=== PATIENT | female | born 1940 | race Caucasian/White ===

== ENCOUNTER 2016-08-13 07:52 | Day surgery (SDC) | payer MEDICARE ==
--- NOTE | 2016-07-29 13:32 | HP ---
Chief Complaint - Chief Complaint Date of Service: 07/29/16 Chief Complaint: need a colonoscopy History of Present Illness: 75 yo female who needs a colonoscopy. Last one was 10 years ago. She believes she had polyps removed. Does not know how many, where located or which type. No blood in stools. No changes in bowels. No abdominal pain and no weight loss. No family history of colon cancers. Also wants me to look at the gallbladder scar and incision. Mild soreness after illness with coughing and sneezing. - Patient's Past Medical History Patient History - Medical: Anesthesia Reaction - hallucinations, Cataracts, Diabetes Type 2, GERD, Headache, UTI'S Patient History - Cardiac/Respiratory: Hypertension, Hyperlipidemia Patient History - Cancer: No Hx of Cancer Patient History - Surgical Procedures: Appendectomy, Cholecystectomy - 2014, Colonoscopy, Hysterectomy, Other - breast biopsy, left 99, Hernia Repair - with panniculectomy 2005 - Family History Family History:: no untoward family reactions to anesthesia, no familial bleeding tendencies, no family history of clotting disorders, no family history of premature - Family History Mother Family History - Medical: Family History - Cardiac/Respiratory: COPD Father Family History - Medical: - Social History Living Situations: alone Psych History: No pertinent hx Does anyone smoke in the home?: No Smoking Status: Never smoker Alcohol Use: rarely Drug Use: none - Immunizations Immunizations Up to Date: Yes Hx Pneumococcal Vaccination: Yes History of Influenza Vaccine: Yes Review Of Systems (GEN) - Review of Systems Generalized/Overall Review: Absent: Weakness, Chills, Malaise, Weight loss EENTM: Present: No Symptoms Reported Respiratory: Absent: Cough, Shortness of Breath, Wheezing Cardiac: Absent: Chest Pain, Palpitations Abdominal: Absent: Nausea, Vomiting, Abdominal Pain, Constipation, Diarrhea, Bright blood from rectum Genitourinary: Absent: Burning, Itching, Hesitancy, Dribbling Musculoskeletal: Absent: Joint Pain, Back Pain, Joint Swelling, Muscle Pain Neurological: Present: Tremors. Absent: Headache, Anxiety, Numbness, Weakness Skin: Absent: Dryness, Lumps, Rash Immunizations: IMMUNIZATION HX Immunizations Up to Date Yes Allergies/Adverse Reactions: Allergies Allergy/AdvReac Type Severity Reaction Status Date / Time codeine Allergy Verified 10/16/14 04:50 Sulfa (Sulfonamide Allergy Verified 10/16/14 04:50 Antibiotics) morphine AdvReac Vomiting Verified 10/16/14 04:50 Home Medications: HOME MEDICATIONS Atenolol [Tenormin] 50 mg PO DAILY 01/30/14 [Last Taken 10/15/14] Lisinopril [Zestril] 20 mg PO DAILY 01/30/14 [Last Taken 10/15/14] Omeprazole [Prilosec] 20 mg PO DAILY 01/30/14 [Last Taken 10/15/14] Simvastatin [Zocor] 20 mg PO HS 01/30/14 [Last Taken 10/15/14] metFORMIN HCL [Glucophage] 1,000 mg PO BIDWM 01/30/14 [Last Taken 10/15/14] Aspirin [Aspirin Enteric Coated] 81 mg PO DAILY 10/16/14 [Last Taken 10/15/14] Hydrochlorothiazide [Hydrodiuril] 25 mg PO DAILY 10/16/14 [Last Taken 10/15/14] Liraglutide [Victoza 2-Sav] 1.2 mg SC DAILY 10/16/14 [Last Taken 10/15/14] Acetaminophen [Tylenol] 500 mg PO Q6H PRN #0 tablet 10/20/14 [Last Taken Unknown ] Potassium Chloride [K-Dur] 20 meq PO BIDWM 30 Days 10/20/14 [Last Taken Unknown] Exam - Exam Vital Signs: Vital Signs - Last Taken Temp 36.7 C Pulse 80 Resp 16 BP 115/65 07/29/16 Pulse Ox Ht 5 ft Wt 195# Constitutional: Present: Alert, Oriented x3, Cooperative, No distress, Overweight ENT Exam: Present: normal ENT inspection, hearing grossly normal. Absent: muffled/hoarse voice, dry mucous membranes Eye Exam: bilateral eye: normal inspection Neck: Present: non-tender, supple Breasts: Present: Exam deferred Respiratory: Present: lungs clear, normal breath sounds, no respiratory distress , no accessory muscle use, No rales, No wheezing Cardiovascular/Chest: Present: regular rate, rhythm, no edema, systolic murmur Abdomen: Present: Normal bowel sounds, obese, hernia - weakness of the subcostal incision /Rectal: Present: Exam deferred Extremity: Present: normal range of motion, no pedal edema Skin Exam: Present: normal color, no cyanosis, other Neurologic: Present: no motor/sensory deficits, alert, normal mood/affect, oriented x 3, other - mild tremor Appearance: Present: appropriate appearance, appropriate insight, neat, no memory impairment Eye contact: Present: cooperative, good eye contact, normal speech Thoughts: Present: normal thought pattern, no apparent hallucination, tactile hallucinations - keloid scarring, normal mood /affect Assessment/Plan - Narrative Narrative: Discussed colonoscopy. She has not had one in over ten years. She had polyps, but no family history. She has no blood in stools. RBIC discussed. Suprep discussed. Scheduled for a couple weeks. Bleeding and perforation discussed. Laxity of incisions (early hernia discussed, she does not want to discuss any hernia repairs. - Assessment/Plan (1) Colon cancer screening Problem: Acute (2) Hypertension Problem: Chronic (3) Diabetes Problem: Chronic Qualifiers: Diabetes mellitus type: type 2 Diabetes mellitus complication status: without complication
[~2016-08-13 07:52] MED LIST: RINGERS SOLUTION,LACTATED 1,000 ML IV PRN
--- OUTSIDE RECORDS SUMMARY | 2016-08-13 07:56 | XMS REPORT | Continuity of Care Document ---
:1940 Author Organization [facility] ([facility]) Address [address] [place] [address] Phone [phone] Care Team Providers Name Role Phone Provider, No-Primary Care Primary Care Provider Unavailable Source Comments This disclosure is being made pursuant to the Care Everywhere program, applicable federal and state laws, and may not contain all informaitonavailable regarding this patient.[facility] ([facility]) Active Allergies and Adverse Reactions Not on File Current Medications Not on file Active Problems Not on file Social History Tobacco Use Types Packs/Day Years Used Date Never Assessed Plan of Care Health Maintenance Due Date Last Done Comments Hepatitis B Vaccine (1 of 3 - Primary Series) 1940 Tdap Vaccine 1949 Lipid Disorder Screening 1956 Td Vaccine 1956 Mammogram 1978 Colonoscopy 10/03/1988 Zoster Vaccine 1998 Osteoporosis Screening (DXA Bone Density) 10/05/2003 Pneumococcal Vaccine (1 of 2 - PCV13) 10/05/2003 Influenza Vaccine: Seasonal (#1) 12/18/2015 Results from Last 3 Months Not on file
[2016-08-13] MEDS ORDERED: RINGERS SOLUTION,LACTATED 1,000 ML IV PRN (10:23)
--- NOTE | 2016-08-13 10:27 | OR ---
Operative Report - Dictated Report Narrative: DATE OF PROCEDURE: August 13 2016 PREOPERATIVE DIAGNOSIS: #1 Screening colonoscopy #2 history of colonic polyps POSTOPERATIVE DIAGNOSIS: #1 Screening colonoscopy #2 pending pathology of biopsy of transverse colon OPERATION: Colonoscopy with biopsy SURGEON: Tho Khanna M.D. [facility] ANESTHESIA : Phil Kang CRNA sedation INDICATIONS: This is a 75 year old female who presents for a screening colonoscopy. I have discussed the risks, benefits, indications, and contraindications for colonoscopy with the possibility of biopsy and/or polypectomy. She understands, agrees, and wishes to proceed. She has undergone a SUPREP and has tolerated it well. PROCEDURE: The patient was brought to the operating theater and placed into the left lateral decubitus position. The patient underwent sedation per anesthesia , and a digital rectal exam was performed. This was noted to be unremarkable. The patient was noted to have no internal but moderate external hemorrhoids. The Olympus video colonoscope was introduced and advanced into the rectum. The rectum was normal in appearance. The scope was then advanced through the sigmoid, where no diverticular disease was noted. The scope was then advanced to the cecum using standard reduction techniques. The appendiceal orifice was noted. The ileocecal valve was noted. The prep appeared to be good with a [place] prep score of 8. The scope was withdrawn slowly as the ascending, transverse, descending, and sigmoid colon were examined in a circumferential fashion. In the mid transverse colon, there was a small 3-4 mm flat lesion, did not have the appearance of a polyp, however a biopsy was taken and sent to pathology. It was near completely removed with the biopsy forceps. There was good hemostasis. The scope was brought back into the rectum where it was retroflexed in the lower rectum was examined. The air was decompressed, and the scope was then removed. Withdrawal time was 10 minutes. POSTOPERATIVE CONDITION: The patient was awakened and taken to the ambulatory surgery center in good condition. No complications were encountered. FINDINGS: No recurrent polyps, no diverticulosis, small lesion of transverse colon which could be a hyperplastic polyp awaiting the results of the pathology Specimens: 1 EBL: 0 The findings were discussed with the patient and their family. I recommend a follow-up colonoscopy in 5-10 years for screening purposes based on the pathology results . We will call in 48 hours with the biopsy results.
[2016-08-13 11:41] VITALS: BP 154/85
== END 2016-08-13 07:53 | disposition home or self-care (01) ==
LOC: AMB 07:52
PROVIDERS: ATTEND Surgery
PROC: 0DBL8ZX Excision of Transverse Colon, Via Natural or Artificial Opening Endoscopic, Diagnostic (ICD-10-PCS; principal; 2016-08-13 09:05)
DX: Z12.11 Encounter for screening for malignant neoplasm of colon (principal); K63.89 Other specified diseases of intestine; E11.9 Type 2 diabetes mellitus without complications; I10 Essential (primary) hypertension; E78.5 Hyperlipidemia, unspecified; K21.9 Gastro-esophageal reflux disease without esophagitis; Z86.010 Personal history of colon polyps; Z68.39 Body mass index [BMI] 39.0-39.9, adult